=== PATIENT | male | born 1980 | race Caucasian/White ===

== ENCOUNTER → 2024-11-14 | Outpatient (CLI) | payer MEDICAID, SELFPAY ==
--- NOTE | 2024-11-14 08:00 | XR_ITS ---
Examination: CT brain head without contrast. 2-D sagittal coronal reconstructions Date and time of exam:November 14, 2024, 0758 hours Comparison December 02, 2023 INDICATIONS: Posterior head lump 10 years CTDI: vol (mGy):50.2 DLP: (mGycm):1036 Technique: Multiple CT axial sections of the brain have been obtained, 5 mm slice thickness. Contrast has not been administered. 2-D sagittal, coronal reconstructions have been obtained Low dose protocols were performed. One or more of the following dose reduction techniques were used; automated exposure control, adjustment of the mA and/or KV according to patient size, use of iterative reconstruction technique. Findings: No significant ventricular enlargement. Intra-axial or extra-axial hemorrhage density is not seen. No mass effect or midline shift Basal cisterns are not remarkable. Fourth ventricle is midline. Cranial vault intact. Normal bony occipital protuberance, sagittal image 24 Impression: Negative for acute hemorrhage, mass effect or midline shift
== END | disposition home or self-care (01) ==
PROVIDERS: Referring Provider Family Medicine; Visit Provider Family Medicine
DX: R22.0 Localized swelling, mass and lump, head (principal)
CPT/HCPCS: 70450

== ENCOUNTER → 2024-12-21 | Outpatient (CLI) | payer MEDICAID, SELFPAY ==
--- NOTE | 2024-12-21 11:00 | XR_ITS ---
Examination: Abdomen sonogram, Limited Date and time of exam: December 21, 2024 1121 hours INDICATIONS: Right upper abdominal pain beginning 2 years ago, history cholecystectomy Technique: Real-time almonte scale transabdominal sonographic images of the upper abdomen obtained. Findings: Absent gallbladder Normal common bile duct 0.3 cm Pancreas obscured by bowel gas Liver 14.5 cm no liver lesions Normal hepatopedal portal venous flow Patent IVC IMPRESSION: Limited study, abundant bowel gas Normal common bile duct
== END | disposition home or self-care (01) ==
LOC: CDIM 10:36
PROVIDERS: PCP Family Medicine; Referring Provider Family Medicine; Visit Provider Family Medicine
DX: R10.9 Unspecified abdominal pain (principal)
CPT/HCPCS: 76705

== ENCOUNTER → 2025-03-15 | Outpatient (CLI) | payer MEDICAID, SELFPAY ==
--- NOTE | 2025-03-15 10:20 | XR_ITS ---
Examination: Abdomen AP single view Technique: AP portable supine abdomen, single view Exam date and time: March 15, 2025, 10:40 a.m. INDICATIONS: Right lower abdominal pain right upper abdominal pain beginning 10 years ago. FINDINGS: Surgical clips in the upper right abdomen Mild air and stool throughout the colon No obstruction No free air No renal or ureteral calculi IMPRESSION: Nonobstructive bowel gas pattern
== END | disposition home or self-care (01) ==
PROVIDERS: PCP Family Medicine; Referring Provider Nurse Practitioner; Visit Provider Nurse Practitioner
DX: R10.11 Right upper quadrant pain (principal)
CPT/HCPCS: 74018